=== PATIENT | male | born 1970 | race Caucasian/White ===

== ENCOUNTER → 2025-07-15 | Day surgery (SDC) | payer OTHER ==
[~2025-07-15] MED LIST: ACETAMINOPHEN 1000 MG/100 ML 100 ML IV ONE; DEXAMETHASONE SOD PHOS INJ 4 MG/ML SDV ONE; FENTANYL CITRATE/PF 100MCG/2 ML INJ ONE; FLONASE ALLERG9.9 ML INH; GLYCOPYRROLATE INJ 0.2 MG/ML VIAL ONE; LIDOCAINE HCL 2% LOCAL INJ 5 ML SDV VIAL INJ ONE; ONDANSETRON HCL INJ 2MG/ML 2ML 2 MG/ML VIAL ONE; PROPOFOL IV EMULSION 10 MG/ML 20 ML VIAL ONE; SEVOFLURANE INHAL SOLN 250 ML PEN BTL ONE; [UNRECOGNIZED DRUG - OTHER] PO
[2025-07-15] MEDS: LACTATED RINGER'S 1,000 ML ONE (10:28)
[2025-07-15 11:58] VITALS: TEMP 98.1
[2025-07-15 13:05] VITALS: BP 120/80; PULSE 52; RESP 16; O2SAT 100
== END | disposition home or self-care (01) ==
LOC: OR 09:03
PROVIDERS: ATTEND Specialist
DX: S83.211A Bucket-handle tear of medial meniscus, current injury, right knee, initial encounter (principal); M65.861 Other synovitis and tenosynovitis, right lower leg; R42 Dizziness and giddiness; X58.XXXA Exposure to other specified factors, initial encounter; Z88.1 Allergy status to other antibiotic agents; Z01.810 Encounter for preprocedural cardiovascular examination
CPT/HCPCS: 93005; J0690; J1100; J2003; J2405